=== PATIENT | female | born 1980 | race Caucasian/White ===

== ENCOUNTER 2017-11-30 10:33 | Day surgery (SDC) | payer OTHER ==
[2017-11-30] MEDS ORDERED: LIDOCAINE 1% 2 ML INJ ID PRN (10:39)
[2017-11-30] MEDS ORDERED: LR 1,000 ML IV ONE (10:39)
[2017-11-30] MEDS ORDERED: ONDANSETRON 4 MG/2 ML VIAL IVP PRN (11:45)
[2017-11-30] MEDS ORDERED: DEXAMETHASONE 4 MG/ML VIAL IVP PRN (11:45)
[2017-11-30] MEDS ORDERED: NALOXONE HCL 0.4 MG/ML INJ IVP PRN (11:45)
[2017-11-30] MEDS ORDERED: ALBUTEROL 3 ML DEYVIAL IH PRN (11:45)
--- NOTE | 2017-11-30 11:45 | PDANEPAE ---
ANE History of Present Illness HERE FOR COLONOSCOPY ANE Past Medical History - Cardiovascular History Hx Hypertension: No Hx Arrhythmias: No Hx Chest Pain: No Hx Coronary Artery / Peripheral Vascular Disease: No Hx CHF / Valvular Disease: No Hx Palpitations: No - Pulmonary History Hx COPD: No Hx Asthma/Reactive Airway Disease: No Hx Recent Upper Respiratory Infection: No Hx Oxygen in Use at Home: No Hx Sleep Apnea: No Sleep Apnea Screening Result - Last Documented: Negative - Neurologic History Hx Cerebrovascular Accident: No Hx Seizures: No Hx Dementia: No Neurologic History Comment: migraines - Endocrine History Hx Diabetes: No - Renal History Hx Renal Disorders: No - Liver History Hx Hepatic Disorders: No - Neurological & Psychiatric Hx Hx Neurological and Psychiatric Disorders: Yes Neurological / Psychiatric History Comment: hx of anxiety and depression but no meds since - Cancer History Hx Cancer: No - Congenital Disorder History Hx Congenital Disorders: No - GI History Hx Gastrointestinal Disorders: Yes Gastrointestinal History Comment: father has hx of colon ca. dietary restrictions help with digestive issues - Other Health History Other Health History: none - Chronic Pain History Chronic Pain: No - Surgical History Prior Surgeries: c-sections x2. appy. wisdom teeth extraction. d&c ANE Review of Systems Review of systems is: negative Review of Systems: - Exercise capacity Exercise capacity: >=4 METS METS (RN): 5 METS ANE Patient History - Allergies Allergies/Adverse Reactions: morphine Allergy (Verified 11/21/17 14:02) restless, difficulty sleeping, nightmares - Home Medications Home medications: home medication list seen and reviewed Home Medications: Progesterone Bcp 11/21/17 [Last Taken 11/29/17 11:05] - NPO status NPO Status: no food or drink >8 hours NPO Since - Liquids (Date): 11/30/17 NPO Since - Liquids (Time): 01:00 NPO Since - Solids (Date): 11/29/17 NPO Since - Solids (Time): 09:00 - Anes Hx Anes Hx: no prior problems - Smoking Hx Smoking Status: Never smoked - Family Anes Hx Family Hx Anesthesia Complications: none ANE Labs/Vital Signs - Vital Signs Vital Signs: reviewed preoperatively; see RN documention for details Blood Pressure: 108/64 Heart Rate: 68 Respiratory Rate: 14 O2 Sat (%): 99 Height: 175.26 cm Weight: 68.039 kg ANE Physical Exam - Airway Neck exam: FROM Mallampati Score: Class 1 - Pulmonary Pulmonary: no respiratory distress - Cardiovascular Cardiovascular: regular rate and rhythym - ASA Status ASA Status: I ANE Anesthesia Plan Anesthesia Plan: GA with mask
[2017-11-30] MEDS ORDERED: PROPOFOL/EMULSION 500 MG/50 ML BOTTLE IV ONE (12:02)
--- NOTE | 2017-11-30 12:14 | PDGENHP ---
History & Physical Chief Complaint: fhx coloncacnr in father age under 60 History of Present Illness: father age 58 Pertinent Past, Social, Family History: no tobacco. occ alcohol. fhx colon cancer father age 59, PGM 80's Relevant Physical Exam: A+Ox3. CTA. S1S2, RRR. +BS, soft nt Cardiorespiratory Assessment: class 2
[2017-11-30] MEDS ORDERED: PROPOFOL 200 MG/20 ML VIAL ONE (12:43)
--- NOTE | 2017-11-30 12:58 | GIREPORT ---
[facility] - Endoscopy Department Patient Name: Radha Diallo Procedure Date: 11/30/2017 10:01 AM Patient Type: Outpatient Attending MD/ ER Physician: Elaina Hogan Procedure: Colonoscopy Indications: Screening in patient at increased risk: Colorectal cancer in father bef ore age 60 Providers: Danny Lopez MD Referring MD: Izabel Valenzuela MD Medicines: Total IV Anesthesia (TIVA) = IV general w/o airway -- pt did not tolera te IV conscious sedation in the pst Complications: No immediate complications. Estimated blood loss: Minimal. Description of Procedure: After obtaining informed consent, the scope was passed under direct vis ion. Throughout the procedure, the patient's blood pressure, pulse, and oxyg en saturations were monitored continuously. The Colonoscope with irrigatio n channel was introduced through the anus and advanced to the terminal il eum, with identification of the appendiceal orifice and IC valve. The colono scopy was performed without difficulty. The patient tolerated the procedure w ell. The quality of the bowel preparation was good. Findings: The digital rectal exam was normal. The terminal ileum appeared normal. A 3 mm polyp was found in the cecum. The polyp was semi-sessile. The po lyp was removed with a piecemeal technique using a cold biopsy forceps. Resection and retrieval were complete. Estimated blood loss was minimal . A 3 mm polyp was found in the proximal transverse colon. The polyp was sessile. The polyp was removed with a piecemeal technique using a cold biopsy forceps. Resection and retrieval were complete. Estimated blood loss was minimal. A 2 mm polyp was found in the distal transverse colon. The polyp was sessile. The polyp was removed with a cold biopsy forceps. Resection an d retrieval were complete. Estimated blood loss was minimal. A 2 mm polyp was found in the descending colon. The polyp was sessile. The polyp was removed with a cold biopsy forceps. Resection and retrieval w ere complete. Estimated blood loss was minimal. A 7 mm polyp was found in the sigmoid colon. The polyp was semi-sessile . The polyp was removed with a cold snare. Resection and retrieval were compl ete. Estimated blood loss was minimal. The exam was otherwise without abnormality. Estimated Blood Loss: Estimated blood loss was minimal. Post Op Diagnosis: - The examined portion of the ileum was normal. - One 3 mm polyp in the cecum, removed piecemeal using a cold biopsy forceps. Resected and retrieved. - One 3 mm polyp in the proximal transverse colon, removed piecemeal us ing a cold biopsy forceps. Resected and retrieved. - One 2 mm polyp in the distal transverse colon, removed with a cold bi opsy forceps. Resected and retrieved. - One 2 mm polyp in the descending colon, removed with a cold biopsy forceps. Resected and retrieved. - One 7 mm polyp in the sigmoid colon, removed with a cold snare. Resec liyah and retrieved. - The examination was otherwise normal. Recommendation: - Await pathology results. - My office will call with the pathology result with 5-7 days. If you h ave not heard from my office by 12-14, do not assume the pathology is kristie l, please call [phone] to get the pathology reults. - Repeat colonoscopy in 3 years for surveillance based on pathology res ults. If only 1 or 2 ofd these polyps have cancer potential, then the interva l is 5 years. - High fiber diet. - Patient has a contact number available for emergencies. The signs and symptoms of potential delayed complications were discussed with the pat ient. Return to normal activities tomorrow. Written discharge instructions we re provided to the patient. - Continue present medications. - Discharge patient to home (ambulatory). - Return to primary care physician as previously scheduled. - Thank you for allowing me to help in your patient's care. Do not hesi abdi to call with any questions. Attending Participation: I personally performed the entire procedure. Jessica Delgado M.D Danny W MD Jessica 11/30/2017 12:57:26 PM This report has been signed electronicallyMathew MD Jessica Number of Addenda: 0 Note Initiated On: 11/30/2017 10:01 AM Total Procedure Duration Time 0 hours 24 minutes 36 seconds [email or web address]
[2017-11-30 13:42] VITALS: BP 110/71
== END 2017-11-30 14:14 | disposition home or self-care (01) ==
LOC: FSGY 10:33
PROVIDERS: ATTEND Internal Medicine Gastroenterology
PROC: 0DBL8ZX Excision of Transverse Colon, Via Natural or Artificial Opening Endoscopic, Diagnostic (ICD-10-PCS; principal; 2017-11-30 12:00)
PROC: 0DBM8ZX Excision of Descending Colon, Via Natural or Artificial Opening Endoscopic, Diagnostic (ICD-10-PCS; principal; 2017-11-30 12:00)
PROC: 0DBH8ZX Excision of Cecum, Via Natural or Artificial Opening Endoscopic, Diagnostic (ICD-10-PCS; principal; 2017-11-30 12:00)
PROC: 0DBN8ZX Excision of Sigmoid Colon, Via Natural or Artificial Opening Endoscopic, Diagnostic (ICD-10-PCS; principal; 2017-11-30 12:00)
DX: D12.0 Benign neoplasm of cecum (principal); D12.3 Benign neoplasm of transverse colon; D12.4 Benign neoplasm of descending colon; D12.5 Benign neoplasm of sigmoid colon
CPT/HCPCS: J2704